=== PATIENT | male | born 1940 | race Caucasian/White ===

== ENCOUNTER → 2017-06-03 | Day surgery (SDC) | payer OTHER ==
[~2017-06-03] VITALS: Ht 182.9 cm; Wt 105.1 kg
[~2017-06-03] MED LIST: *morphine SULFATE 8 MG/ML PERIprocedure ONLY ONE; ACETAMINOPHEN 1000 MG/100 ML 100 ML IV ONE; ACETAMINOPHEN/HYDROcodone 325 MG/7.5 MG TAB PO PRN; BUPIVACAINE/EPINEPHRINE 0.25% PF 30 ML VIAL ONE; CHLORHEXIDINE GLUCONATE 2 % 1 PACK (2 CLOTHS) TOPICAL PRN; CHLORHEXIDINE GLUCONATE 4% SOLN 120 ML BTL TOPICAL SCH; DO NOT ADM ANY ANTICOAGULANT DRUGS PRN; INSULIN HUMAN REGULAR 1,000 UNITS/10 ML VIAL SQ PRN; LACTATED RINGER'S 1000 ML IV PRN; LATA0.002 EACH EYE; LISI-515 PO; METOPROLOL TARTRATE 25 MG TAB PO PRN; POVIDONE IODINE 5% (ANTISEPSIS KIT) 4 APPLICATIONS EACH NARE PRN; SODIUM CHLORID 0.9% 500 ML IV PRN; TIMO0.257 EACH EYE; WARF-60 PO; WARFARIN SOD 3 MG TAB PO ONE; ceFAZolin 1,000 MG/NS 100 ML IV SCH; ceFAZolin INJ 1,000 MG VIAL ONE
[2017-06-03 11:32] LABS: PROTHROMBIN TIME - PATIENT 11.5 SEC (9.8-11.6)
[2017-06-03 13:48] LABS: AUTOMATED NEUTROPHIL # 5.4 TH/MM3 (1.8-7.7); BASOPHIL # 0.1 TH/MM3 (0-0.2); BASOPHIL % 0.8 % (0.0-2.0); EOSINOPHIL # 0.1 TH/MM3 (0-0.4); EOSINOPHIL % 0.9 % (0.0-4.0); HEMATOCRIT 43.6 % (39.0-51.0); HEMO FLAGS DIFF FINAL; LYMPH % 15.2 % (9.0-44.0); LYMPHOCYTE # 1.1 TH/MM3 (1.0-4.8); MEAN CELL VOLUME 94.8 FL (80.0-100.0); MEAN CORPUSCULAR HEMOGLOBIN 31.9 PG (27.0-34.0); MEAN CORPUSCULAR HGB CONC 33.6 % (32.0-36.0); NEUT % 76.1 % (16.0-70.0); PLATELET COUNT 116 TH/MM3 (150-450); RED CELL DISTRIBUTION WIDTH 13.3 % (11.6-17.2)
[2017-06-03 17:50] VITALS: BP 154/77; PULSE 69; RESP 18; TEMP 97.7; O2SAT 98
--- NOTE | 2017-06-03 18:12 | RADRPT ---
EXAM DATE/TIME: 06/03/2017 15:33 [facility] COMPARISON: No previous studies available for comparison. INDICATIONS : Lower back pain. MEDICAL HISTORY : None. SURGICAL HISTORY : None. ENCOUNTER: Initial ACUITY: 1 day PAIN SCORE: Non-responsive. LOCATION: Bilateral lower back. FINDINGS: Limited views of the lower lumbar spine in lateral projection from the OR have been obtained. On the image labeled #1, surgical instruments are directed between the L3 and L4 levels. On the image labele d #2, surgical instruments are seen over the L4-5 level. CONCLUSION: Lumbar localization as described above. Franko Ledesma MD on June 03, 2017 at 18:09 Board Certified Radiologist. This report was verified electronically.
--- NOTE | 2017-06-03 19:03 | EKG ---
Date Performed: 06/03/2017 Time Performed: 10:28:09 PTAGE: 77 years EKG: Sinus rhythm POSSIBLE RIGHT VENTRICULAR CONDUCTION DELAY MODERATE VOLTAGE CRITERIA FOR LVH, CONSIDER NORMAL VARIA NT BORDERLINE ECG NO PREVIOUS TRACING DOCTOR: Tristen Pena Interpretating Date/Time 06/03/2017 19:03:02
--- NOTE | 2017-06-04 08:33 | MP ---
cc: MINNA ARRINGTON M.D., MERCEDES, MD DATE OF SURGERY 06/03/2017 PREOPERATIVE DIAGNOSIS 1. L3-4, L4-5 moderate to moderately severe spinal stenosis. 2. Left greater than right lumbar radiculitis. 3. Lumbar spine degenerative disk disease, osteoarthritis. POSTOPERATIVE DIAGNOSIS 1. L3-4, L4-5 moderately severe spinal stenosis. 2. Left greater than right lumbar radiculitis. 3. Lumbar spine degenerative disk disease, osteoarthritis. PROCEDURE L3-4, L4-5 bilateral hemilaminectomy with decompression nerve root, bilateral foraminotomy, partial facetectomy. SURGEON Jesica Arrington MD ACCOUNT RECEIVABLE CLERK Dhara Mayer PA-C SPECIMEN None ESTIMATED BLOOD LOSS 50 cc COMPLICATIONS None ANESTHESIA General DRAINS None CONDITION Stable PLAN OF ACTIVITY Per orders. PROCEDURE My assistant child care teacher Dhara Mayer PA-C was present for the entire surgical case. She was medically necessary for the entire case because of the complexity of the case and to facilitate the performance of the procedure. The PASTRY FINISHER at the back table was not a skill set for this case to manipulate the instruments e.g. multiple different types of soft tissue retractors and nerve root retractors. The patient was brought into the operating room, had satisfactory general anesthesia by the Department of Anesthesia. The patient was carefully transferred onto the [facility] spinal frame. All pressure points were well-padded. The lumbosacral spine was prepped and draped in the usual sterile manner. A localizing x-ray was used to confirm the L3-4 and L4-5 interspaces. 25 cc of 0.25% Marcaine with epinephrine was used to anesthetize the operative site to provide postoperative analgesia in addition to postoperative hemostasis. A small incision was made over the lower lumbar spine area. Dissection carried down through the subcutaneous tissue. All bleeders were individually coagulated. Paraspinal musculature gently removed from the posterior elements. A localizing x-ray was used to confirm the L3-4 and L4-5 interspaces. Dissection was initially carried out at L4-5. A bilateral hemilaminectomy with decompression of the nerve roots was performed. The patient was found to have more spinal stenosis then the preoperative imaging studies showed. The patient was found to have moderately severe spinal stenosis with foraminal stenosis. The bilateral decompressive hemilaminectomy performed and bilateral foraminotomy with partial facetectomy. The patient was found to have a very satisfactory decompression of the neurological elements. Dissection was carried in a more cephalad manner at the L3-4 interspace. Bilateral decompressive hemilaminectomy was performed at L3-4 with decompression of the nerve roots. Bilateral foraminotomy and partial facetectomy was also performed. Again, the patient was found to have moderately severe spinal stenosis at this segment also. The wound was irrigated with copious amounts of sterile saline antibiotic solution. Because the patient is going to be anticoagulated postoperatively, Duragen was then placed on top of the dura to help prevent postoperative adhesions and also help prevent any potential postoperative hemorrhaging. Also, Surgicel was used at the operative site to help prevent any potential postoperative bleeding. At the time of closure, there was no evidence of any bleeding at all. The wound was closed in multiple layers. The fascia was closed with #2 Tycron suture x2, subcutaneous tissue in layers with 0-Vicryl and 2-0 Vicryl. Skin was approximated with interrupted 2-0 nylon. Sterile dressings were applied. The patient tolerated the procedure well and arrived in the recovery room in stable and satisfactory condition. MD KORTNEY Hargrove/[place] /4:24 PM /8:24 AM
== END | disposition home or self-care (01) ==
LOC: HSDC 09:43
PROVIDERS: ATTEND Orthopaedic Surgery Orthopaedic Surgery of the Spine
DX: M48.07 Spinal stenosis, lumbosacral region (principal); M54.16 Radiculopathy, lumbar region; M51.36 Other intervertebral disc degeneration, lumbar region; I10 Essential (primary) hypertension; J45.909 Unspecified asthma, uncomplicated; M85.80 Other specified disorders of bone density and structure, unspecified site; I82.5Z1 Chronic embolism and thrombosis of unspecified deep veins of right distal lower extremity; Z01.810 Encounter for preprocedural cardiovascular examination; Z01.818 Encounter for other preprocedural examination
CPT/HCPCS: 00630; 63030; 63035; 72020; 76000; 85025; 85610; 93005; J0131; J0690; J2270; J7120

== ENCOUNTER → 2017-09-02 | Outpatient (CLI) | payer OTHER ==
[~2017-09-02] MED LIST changes: -*morphine SULFATE 8 MG/ML PERIprocedure ONLY ONE; -ACETAMINOPHEN 1000 MG/100 ML 100 ML IV ONE; -ACETAMINOPHEN/HYDROcodone 325 MG/7.5 MG TAB PO PRN; -BUPIVACAINE/EPINEPHRINE 0.25% PF 30 ML VIAL ONE; -CHLORHEXIDINE GLUCONATE 2 % 1 PACK (2 CLOTHS) TOPICAL PRN; -CHLORHEXIDINE GLUCONATE 4% SOLN 120 ML BTL TOPICAL SCH; +COMMODE 3-IN-11 MIS; +CPMMACHINE; -DO NOT ADM ANY ANTICOAGULANT DRUGS PRN; -INSULIN HUMAN REGULAR 1,000 UNITS/10 ML VIAL SQ PRN; -LACTATED RINGER'S 1000 ML IV PRN; -METOPROLOL TARTRATE 25 MG TAB PO PRN; -POVIDONE IODINE 5% (ANTISEPSIS KIT) 4 APPLICATIONS EACH NARE PRN; -SODIUM CHLORID 0.9% 500 ML IV PRN; +VENTAER INH; +VITA100021 SL; +WALKER WHEELS/F1 MIS; -WARFARIN SOD 3 MG TAB PO ONE; -ceFAZolin 1,000 MG/NS 100 ML IV SCH; -ceFAZolin INJ 1,000 MG VIAL ONE
== END ==
LOC: CPRE 11:47
PROVIDERS: ATTEND Orthopaedic Surgery
DX: M17.11 Unilateral primary osteoarthritis, right knee (principal)

== ENCOUNTER 2017-09-18 06:44 | Inpatient (IN) | payer OTHER, MEDICARE ==
[~2017-09-18] VITALS: Ht 182.9 cm; Wt 109.3 kg
[~2017-09-18 06:44] MED LIST changes: -COMMODE 3-IN-11 MIS; -CPMMACHINE; -WALKER WHEELS/F1 MIS
[2017-09-18] MEDS ORDERED: ROPIVACAINE PERI-ARTICULAR INJECTION. P-ARTICULR SCH ×5 (07:30)
[2017-09-18] MEDS ORDERED: METOPROLOL TARTRATE 25 MG TAB PO PRN (07:30)
[2017-09-18] MEDS ORDERED: POVIDONE IODINE 7.5% SCRUB 118 ML BOTTLE TOPICAL SCH (07:30)
[2017-09-18] MEDS ORDERED: SODIUM CHLORID 0.9% 500 ML IV PRN (07:30)
[2017-09-18] MEDS ORDERED: CHLORHEXIDINE GLUCONATE 4% SOLN 120 ML BTL TOPICAL SCH (07:30)
[2017-09-18] MEDS ORDERED: ceFAZolin 2 GM PREMIX 50 ML IV SCH (07:30)
[2017-09-18] MEDS ORDERED: CHLORHEXIDINE GLUCONATE 2 % 1 PACK (2 CLOTHS) TOPICAL PRN (07:30)
[2017-09-18] MEDS ORDERED: POVIDONE IODINE 5% (ANTISEPSIS KIT) 4 APPLICATIONS EACH NARE PRN (07:30)
[2017-09-18] MEDS ORDERED: LACTATED RINGER'S 1000 ML IV PRN (07:30)
[2017-09-18] MEDS ORDERED: SODIUM CHLORIDE 0.9% IV SCH ×2 (07:30→13:00)
[2017-09-18] MEDS ORDERED: TRANEXAMIC ACID IV SCH ×2 (07:30→13:00)
[2017-09-18] MEDS ORDERED: VANCOMYCIN 1000 MG/NS 250 ML (for <70 kg) IV SCH ×2 (07:30)
[2017-09-18] MEDS ORDERED: DEXAMETHASONE SOD PHOS 20 MG/5 ML VIAL IV SCH (07:30)
[2017-09-18 07:40] LABS: INTERNATIONAL NORMALIZED RATIO 1.1 RATIO; PROTHROMBIN TIME - PATIENT 10.9 SEC (9.8-11.6)
[2017-09-18 08:23] VITALS: PULSE 59
[2017-09-18] MEDS ORDERED: GENTAMICIN SULFATE 80 MG/2 ML VIAL ONE ×2 (08:29)
[2017-09-18] MEDS ORDERED: BUPIVACAINE LIPOSOME PF 1.3% 20 ML VIAL ONE ×2 (08:46→08:47)
[2017-09-18] MEDS ORDERED: LIDOCAINE HCL 1% PF 5 ML AMPULE ONE (08:47)
[2017-09-18] MEDS ORDERED: ALBUTEROL SULFATE 90 MCG/ACT HFA 8 GM INHALER INH PRN (11:45)
--- NOTE | 2017-09-18 11:55 | PD.OP ---
cc: Heri Cabrera MD Operative Report Date of Surgery: Sep 18, 2017 Preoperative Diagnosis: Right knee severe osteoarthritis Postoperative Diagnosis: Same Procedure: Right total knee arthroplasty Anesthesia: Adductor canal block and general Surgeon: Heri Cabrera Coremaker Bench(s): NIKO Chacon The surgical procedure was assisted by my Advanced Registered Nurse Practitioner. My CABLE ARMORER OPERATOR presence was necessary throughout this case for the manipulation and positioning of the surgical extremity. My CABLE ARMORER OPERATOR was assisting me throughout the duration of this procedure. The skill set of an Advance Registered Nurse Practitioner was medically necessary to complete this procedure. During the surgical case, the neurosurgical nurse was working at the back table and the Advance Registered Nurse Practitioner was directly assisting me. Operation and Findings: IMPLANTS: DePuy Attune: Patella: size 32. Femur, posterior stabilized size 8. Tibia, rotating platform size 7. Tibial insert, rotating platform, posterior stabilized size 8 mm thickness. ESTIMATED BLOOD LOSS: 200 cc TOURNIQUET TIME: 43 minutes at 250 mmHg pressure. JUSTIFICATION FOR PROCEDURE: The patient has end-stage osteoarthritis to the knee. There is an attached conservative measures pathway form in the chart that describes the nonoperative measures that were undertaken prior to consideration of surgical management. The patient understood the risks and benefits of surgical management. See my office notes for further details PROCEDURE: The patient was brought back to the operative theatre. Adequate anesthesia was obtained. The patient received intravenous vancomycin and Ancef. The lower extremity was prepped and draped in the usual sterile fashion.The leg was exsanguinated, the tourniquet was raised. A standard anterior incision was performed followed by medial parapatellar arthrotomy was performed. End-stage arthritis was identified. Osteotomy of the patella was performed. We drilled holes for the patella. We trialed the patella component. We placed an intramedullary guide into the distal femur. We ultimately resected 13 mm off of the distal femur in 5 degrees of valgus. The remnants of the ACL and PCL were resected. Osteotomy of the proximal tibia was performed, resecting 7 mm off of the medial side. This was done with 3 degrees of posterior slope using an extramedullary guide. The distal end of the guide was placed in the mid aspect of the ankle. The femur was sized, and four chamfer cuts were completed in 3 of external rotation. We then cut the central box in the distal femur to replace the PCL. We resected the remnants of the menisci and removed osteophytes off of the femur and tibia. We then trialed the knee. We punched the tibia for the keel, and then used standard technique to cement in components. Excess cement was removed. We trialed the knee again and the final polyethylene thickness was chosen to provide extension to 0 degrees, and flexion of 140 degrees to gravity. The ligaments were appropriately balanced. Lateral release was necessary to obtain excellent patellofemoral tracking. The tourniquet was released and adequate hemostasis was obtained. An intra- articular injection of a ropivacaine cocktail was injected. The posterior knee was inspected for excess cement, which was removed. The final polyethylene was put into position after thorough irrigation. We then closed deep fascia with a #2 Stratafix followed by skin with 2-0 Vicryl followed by erick. Postop plan is to weight-bear as tolerated. DVT prophylaxis will be performed with SCDs, CHATO parker, early mobilization, and Lovenox for 3 days with resumption of outpatient dose of Coumadin tonight.. Heri Cabrera MD Sep 18, 2017 11:55
[2017-09-18] MEDS ORDERED: PROPOFOL 200 MG/20 ML AMP IV ONE (12:00)
[2017-09-18] MEDS ORDERED: ROCURONIUM INJ 50 MG/5 ML SYRINGE IV PUSH ONE (12:00)
[2017-09-18] MEDS ORDERED: hydrALAZINE HCL 20 MG/ML VIAL IV ONE (12:00)
[2017-09-18] MEDS ORDERED: ONDANSETRON HCL 4 MG/2 ML VIAL IVP PRN (12:00)
[2017-09-18] MEDS ORDERED: diphenhydrAMINE HCL 50 MG/ML VIAL IV PUSH PRN (12:00)
[2017-09-18] MEDS ORDERED: BISACODYL 10 MG SUPP RECTAL PRN (12:00)
[2017-09-18] MEDS ORDERED: NALOXONE HCL 0.4 MG/ML AMP IV PUSH PRN (12:00)
[2017-09-18] MEDS ORDERED: MORPHINE SULFATE 4 MG/ML INJ IV PUSH PRN (12:00)
[2017-09-18] MEDS ORDERED: Post-op Orders (for Pharmacy) XX ONE (12:00)
[2017-09-18] MEDS ORDERED: ONDANSETRON HCL 4 MG/2 ML VIAL IV ONE (12:00)
[2017-09-18] MEDS ORDERED: LIDOCAINE HCL 1% PF 5 ML SYRINGE OTHER ONE (12:00)
[2017-09-18] MEDS ORDERED: DO NOT ADM ANY ANTICOAGULANT DRUGS PRN (12:08)
--- NOTE | 2017-09-18 12:09 | HHI.DCPOC ---
Discharge Care Plan Diagnosis: (1) Primary localized osteoarthrosis, lower leg (2) Status post total knee replacement, right Your Health Problems Are: Difficulty with ADL Goals to Promote Your Health * To prevent worsening of your condition and complications * To maintain your health at the optimal level Directions to Meet Your Goals Take your medications as prescribed Follow your dietary instruction Follow activity as directed Keep your appointments as scheduled Take your immunizations and boosters as scheduled If your symptoms worsen call your PCP, if no PCP go to Urgent Care Center or Emergency Room Smoking is Dangerous to Your Health. Avoid second hand smoke Call the 24-hour hour crisis hotline for domestic abuse at Harley Castorena Sep 18, 2017 12:09
--- NOTE | 2017-09-18 12:10 | HHI.FF ---
Face to Face Verification Diagnosis: (1) Primary localized osteoarthrosis, lower leg (2) Status post total knee replacement, right Physical Therapy Gait training, Transfer training, bed to chair Knee: Total knee Right LE Weight Bearing: WB as tolerated Right LE Range of Motion: Active ROM Nursing Dressing Changes: Do not change dressing Additional Instructions First dressing change in the office I have seen patient Stanley Mackay on 09/18/17. My clinical findings support the need for the requested home health care services because: Limited ability to care for self High risk of falls I certify that my clinical findings support that this patient is homebound because: Post-op weakness Unsteady gait/balance Harley Castorena Sep 18, 2017 12:10
[2017-09-18] MEDS ORDERED: WALKER WHEELS/F1 MIS (12:11)
[2017-09-18] MEDS ORDERED: CPMMACHINE (12:11)
[2017-09-18] MEDS ORDERED: COMMODE 3-IN-11 MIS (12:11)
[2017-09-18] MEDS ORDERED: *MEPERIDINE 25 MG INJ VIAL PERIprocedural Use ONLY ONE (12:23)
[2017-09-18] MEDS ORDERED: MIDAZOLAM HCL 2 MG/2 ML VIAL ONE (12:24)
[2017-09-18] MEDS ORDERED: *morphine SULFATE 4 MG/ML PERIprocedure ONLY ONE (12:36)
[2017-09-18] MEDS: SODIUM CHLOR 0.9% 1000 ML INJ 1,000 ML IV SCH ×3 (13:00→22:09)
[2017-09-18] MEDS ORDERED: *morphine SULFATE 10 MG/ML PERIprocedure ONLY ONE (13:06)
--- NOTE | 2017-09-18 13:35 | RADRPT ---
EXAM DATE/TIME: 09/18/2017 12:58 [facility] COMPARISON: No previous studies available for comparison. INDICATIONS : Post op right knee surgery. MEDICAL HISTORY : Carcinoma, prostatic. Hypertension SURGICAL HISTORY : None. ENCOUNTER: Initial ACUITY: 1 day PAIN SCORE: Non-responsive. LOCATION: Right knee. FINDINGS: AP and lateral views of the knee following arthroplasty reveals a prosthesis in anatomic alignment. F racture is not appreciated. Surgical drain is evident CONCLUSION: Status post total knee arthroplasty. Gustavo Bishop MD FACR on September 18, 2017 at 13:35 Board Certified Radiologist. This report was verified electronically.
[2017-09-18] MEDS: WARFARIN SOD 6 MG TAB PO SCH (17:31)
--- NOTE | 2017-09-18 17:46 | PD.CONS ---
HPI Service [facility] Hospitalists Consult Requested By Dr. Cabrera Reason for Consult Medical management. Primary Care Physician Fouzia Alvarado Diagnoses: History of Present Illness This is a 77-year-old male with past medical history significant for chronic back pain and radiculopathy, glaucoma, hypertension and history of DVT who presents to [facility] for elective right total knee arthroplasty. The patient underwent right total knee arthroplasty today, states pain is controlled and the right knee hurts more when he moves the joint. The patient otherwise denies any nausea, vomiting, abdominal pain, dysuria, diarrhea. Review of Systems As per HPI, other systems reviewed by me and negative. Past Family Social History Allergies: Coded Allergies: No Known Allergies (Unverified , 09/03/17) Past Medical History 1. Right lower extremity DVT. 2. Chronic back pain with radicular signs. 3. Glaucoma the right eye. 4. Hypertension Past Surgical History 1. Lumbar spine surgery in April 2017. 2. Status post right cataract surgery. Reported Medications Reported Meds & Active Scripts Active Reported Ventolin Hfa 18 GM Inh (Albuterol Sulfate) 90 Mcg/Act Aer 1 Puff INH Q4H PRN Vitamin B-12 (Cyanocobalamin) 1,000 Mcg Subl 1,000 Mcg SL DAILY Latanoprost Opth Drops (Latanoprost) 0.005% Drops 1 Drop EACH EYE HS Refrigerate until opened. Timolol Opth Drops 0.25 % Soln 0.25 Drop EACH EYE DAILY Warfarin 6 Mg Tab 6 Mg PO DAILY Lisinopril 20 Mg Tab 20 Mg PO DAILY Active Ordered Medications Current Medications Medications (Trade) Dose Ordered Sig/Basil Route Start Time Stop Time Status Last Admin Lactated Ringer's 1,000 ml @ 30 mls/hr Q24H PRN IV 09/18/17 07:30 09/21/17 07:29 09/18/17 07:30 Sodium Chloride 500 ml @ 30 mls/hr [id number] PRN IV 09/18/17 07:30 09/21/17 07:29 (Lopressor) 25 mg CARTON STAMPER PRN PO 09/18/17 07:30 09/21/17 07:29 (Betadine 5% Antisepsis Kit) 1 applic CARTON STAMPER PRN EACH NARE 09/18/17 07:30 09/21/17 07:29 09/18/17 07:30 (Chlorhexidine 2% Cloth) 3 pack CARTON STAMPER PRN TOPICAL 09/18/17 07:30 09/21/17 07:29 09/18/17 06:15 (Betadine 7.5% Scrub) 1 applic ONCE TOPICAL 09/18/17 07:30 09/21/17 07:29 09/18/17 07:15 (Hibiclens 4% Top Soln) 1 applic ONCE TOPICAL 09/18/17 07:30 09/21/17 07:29 Cefazolin Sodium/ Dextrose 50 ml @ 100 mls/hr CARTON STAMPER IV 09/18/17 07:30 09/21/17 07:29 09/18/17 09:44 Vancomycin HCl 1000 mg/Sodium Chloride 250 ml @ 250 mls/hr CARTON STAMPER IV 09/18/17 07:30 09/21/17 07:29 09/18/17 09:33 Tranexamic Acid 1033 mg/Sodium Chloride 110.33 ml @ 200 mls/ hr ONCE IV 09/18/17 07:30 09/19/17 07:29 09/18/17 10:19 Ropivacaine 24.63 ml/Ketorolac Tromethamine 30 mg/Epinephrine HCl 0.5 mg/ Clonidine 80 mcg/ Sodium Chloride 100 ml @ 200 mls/hr ONCE P-ARTICULR 09/18/17 07:30 09/19/17 07:29 09/18/17 10:43 (Decadron Inj) 10 mg CARTON STAMPER IV 09/18/17 07:30 09/18/17 08:10 (Proair Hfa Inh) 1 puff Q4H PRN INH 09/18/17 11:45 (Xalatan 0.005% Opth Soln) 1 drop HS EACH EYE 09/18/17 21:00 09/18/17 20:23 (Prinivil) 20 mg DAILY PO 09/19/17 09:00 (Timoptic 0.25% Opth Soln) 1 drop DAILY EACH EYE 09/19/17 09:00 Sodium Chloride 1,000 ml @ 100 mls/hr Q10H IV 09/18/17 13:00 09/18/17 22:09 Cefazolin Sodium 1000 mg/Sodium Chloride 100 ml @ 200 mls/hr Q6H IV 09/18/17 16:00 09/19/17 04:29 09/18/17 20:20 (Decadron Inj) 10 mg ONCE ONCE IV 09/19/17 07:45 09/19/17 07:46 (Lovenox Inj) 40 mg Q24H SQ 09/19/17 11:00 09/21/17 11:01 (Nash 5-325 Mg) 1 tab Q4H PRN PO 09/18/17 12:00 (Nash 5-325 Mg) 2 tab Q4H PRN PO 09/18/17 12:00 09/18/17 18:16 (Theragran M Tab) 1 tab BID PO 09/19/17 21:00 11/18/17 20:59 (Zofran Inj) 4 mg Q6H PRN IVP 09/18/17 12:00 (Colace) 100 mg BID PO 09/19/17 21:00 (Mag-Al Plus Susp Liq) 30 ml Q6H PRN PO 09/18/17 12:00 09/18/17 23:21 (Ambien) 5 mg HS PRN PO 09/18/17 21:00 (Dulcolax Supp) 10 mg DAILY PRN RECTAL 09/18/17 12:00 (Milk Of Magnesia Liq) 30 ml DAILY PRN PO 09/18/17 12:00 (Narcan Inj) 0.4 mg UNSCH PRN IV PUSH 09/18/17 12:00 (Benadryl Inj) 25 mg Q6H PRN IV PUSH 09/18/17 12:00 (Morphine Inj) 2 mg Q3H PRN IV PUSH 09/18/17 12:00 09/18/17 15:13 (Coumadin) 6 mg DAILY@1600 PO 09/18/17 17:00 09/18/17 17:31 Miscellaneous Information ALL NURSING DEPARTME... UNSCH PRN .XX 09/18/17 12:08 09/19/17 12:07 Family History The patient denies any history of diabetes, cancer or heart disease in his family. Social History The patient states that he drinks alcohol daily, about 2 drinks daily. The patient denies smoking, he is a former smoker and quit in 1959. The patient denies any illicit drug use. The patient is and has 3 grown children who all live in [place]. Physical Exam Vital Signs Vital Signs Date Time Temp Pulse Resp B/P (MAP) Pulse Ox O2 Delivery O2 Flow Rate FiO2 09/18/17 16:30 97.6 80 16 140/65 (90) 95 Nasal Cannula 2 09/18/17 16:00 79 16 148/69 (95) 94 Nasal Cannula 2 09/18/17 15:18 16 09/18/17 15:00 77 15 143/70 (94) 94 Nasal Cannula 2 09/18/17 14:00 75 15 137/70 (92) 94 Nasal Cannula 2 09/18/17 13:30 97.7 76 15 143/65 (91) 98 Nasal Cannula 3 09/18/17 13:15 77 15 139/66 (90) 97 Nasal Cannula 3 09/18/17 13:11 15 09/18/17 13:11 15 09/18/17 13:00 78 15 138/64 (88) 95 Nasal Cannula 3 09/18/17 12:45 83 15 143/64 (90) 95 Nasal Cannula 3 09/18/17 12:41 15 09/18/17 12:30 87 15 152/67 (95) 98 Nasal Cannula 4 09/18/17 12:15 84 14 146/63 (90) 97 Nasal Cannula 4 09/18/17 12:10 97.3 86 14 143/58 (86) 93 Nasal Cannula 4 09/18/17 08:23 98 Nasal Cannula 2 09/18/17 08:23 59 Physical Exam GENERAL: This is a well-nourished, well-developed patient, in no apparent distress. SKIN: No rashes, ecchymoses or lesions. Cool and dry. HEAD: Atraumatic. Normocephalic. No temporal or scalp tenderness. EYES: Pupils equal round and reactive. Extraocular motions intact. No scleral icterus. No injection or drainage. ENT: Nose without bleeding, purulent drainage or septal hematoma. Throat without erythema, tonsillar hypertrophy or exudate. Uvula midline. Airway patent. NECK: Trachea midline. No JVD or lymphadenopathy. Supple, nontender, no meningeal signs. CARDIOVASCULAR: Regular rate and rhythm without murmurs, gallops, or rubs. RESPIRATORY: Clear to auscultation. Breath sounds equal bilaterally. No wheezes , rales, or rhonchi. GASTROINTESTINAL: Abdomen soft, non-tender, nondistended. No hepato-splenomegaly , or palpable masses. No guarding. MUSCULOSKELETAL: Extremities without clubbing, cyanosis, or edema. No joint tenderness, effusion, or edema noted. No calf tenderness. Negative Homans sign bilaterally. Right knee has postsurgical dressing which is C/D/I. NEUROLOGICAL: Awake and alert. Cranial nerves II through XII intact. Motor and sensory grossly within normal limits. Five out of 5 muscle strength in all muscle groups. Normal speech. Laboratory Laboratory Tests Test 09/18/17 07:15 Prothrombin Time 10.9 Prothromb Time International Ratio 1.1 Imaging Last Impressions Knee X-Ray 09/18/17 1146 Signed Impressions: Service Date/Time: Monday, September 18, 2017 12:58 - CONCLUSION: Status post total knee arthroplasty. Gustavo Bishop MD Assessment and Plan Problem List: (1) Status post total knee replacement, right ICD Code: Z96.651 - Presence of right artificial knee joint Plan: Status post right total knee arthroplasty. Management as per orthopedic surgery. Pain control as per orthopedic surgery. Patient currently on Nash and morphine IV. (2) Primary localized osteoarthrosis, lower leg ICD Code: M17.10 - Unilateral primary osteoarthritis, unspecified knee Plan: As above. (3) H/O deep venous thrombosis ICD Code: Z86.718 - Personal history of other venous thrombosis and embolism Status: Chronic Plan: Coumadin on hold. Resume as per orthopedic surgery. (4) Glaucoma ICD Code: H40.9 - Unspecified glaucoma Plan: Continue Timolol and latanoprost ophthalmic drops. Assessment and Plan DVT prophylaxis: Lovenox subcutaneously as per orthopedic surgery. Code Status Full code Discussed Condition With Patient. Problem Qualifiers (1) Primary localized osteoarthrosis, lower leg: Qualified Codes: M17.11 - Unilateral primary osteoarthritis, right knee (2) Glaucoma: Tim Spears MD Sep 18, 2017 17:46
[2017-09-18] MEDS: ACETAMINOPHEN/HYDROcodone 325 MG/5 MG TAB PO PRN (18:16)
[2017-09-18 20:02] VITALS: BP 152/71; PULSE 75; RESP 18; TEMP 97.1; O2SAT 93
[2017-09-18] MEDS: LATANOPROST 0.005% OPHT SOLN 2.5 ML BTL EACH EYE SCH (20:23)
[2017-09-18] MEDS ORDERED: ZOLPIDEM TARTRATE 5 MG TAB PO PRN (21:00)
[2017-09-18] MEDS: ALUMINUM/MAGNESIUM/SIMETH 30 ML CUP PO PRN (23:21)
[2017-09-18 23:32] VITALS: BP 154/71; PULSE 74; RESP 18; TEMP 97.3; O2SAT 95
[2017-09-19] VITALS (8 sets, daily range): BP systolic 147–175; BP diastolic 69–86; PULSE 67–84; RESP 18; TEMP 96.8–98.1; O2SAT 94–97
[2017-09-19 04:20] LABS: HEMATOCRIT 41.3 % (39.0-51.0); HEMOGLOBIN 13.9 GM/DL (13.0-17.0); MEAN CELL VOLUME 91.2 FL (80.0-100.0); MEAN CORPUSCULAR HEMOGLOBIN 30.8 PG (27.0-34.0); MEAN CORPUSCULAR HGB CONC 33.8 % (32.0-36.0); MEAN PLATELET VOLUME 8.7 FL (7.0-11.0); PLATELET COUNT 167 TH/MM3 (150-450); RED BLOOD COUNT 4.52 MIL/MM3 (4.50-5.90); RED CELL DISTRIBUTION WIDTH 14.7 % (11.6-17.2); WHITE BLOOD COUNT 14.1 TH/MM3 (4.0-11.0)
[2017-09-19 04:28] LABS: INTERNATIONAL NORMALIZED RATIO 1.1 RATIO; PROTHROMBIN TIME - PATIENT 11.1 SEC (9.8-11.6)
[2017-09-19] MEDS: ACETAMINOPHEN/HYDROcodone 325 MG/5 MG TAB PO PRN ×5 (04:43→21:01)
[2017-09-19] MEDS: SODIUM CHLOR 0.9% 1000 ML INJ 1,000 ML IV SCH (04:44)
[2017-09-19] MEDS ORDERED: DEXAMETHASONE SOD PHOS 20 MG/5 ML VIAL IV ONE (07:45)
[2017-09-19] MEDS: TIMOLOL MALEATE 0.25% OPHT SOLN 5 ML BTL EACH EYE SCH (08:43)
[2017-09-19] MEDS ORDERED: WARFARIN SOD 6 MG TAB PO SCH (09:00)
[2017-09-19] MEDS ORDERED: LISINOPRIL 20 MG TAB PO SCH (09:00)
[2017-09-19] MEDS: ENOXAPARIN SODIUM 40 MG/0.4 ML SYRINGE SQ SCH (12:16)
[2017-09-19 12:17] LABS: ALBUMIN 3.4 GM/DL (3.4-5.0); ALT (GPT) 18 U/L (12-78); AST (GOT) 19 U/L (15-37); BICARBONATE 24.4 MEQ/L (21.0-32.0); BLOOD UREA NITROGEN 13 MG/DL (7-18); CALCIUM 8.5 MG/DL (8.5-10.1); CHLORIDE 108 MEQ/L (98-107); CREATININE 1.16 MG/DL (0.60-1.30); GLOMERULAR FILTRATION RATE 61 ML/MIN (>89); GLUCOSE,RANDOM 95 MG/DL (74-106); SODIUM (NA) 140 MEQ/L (136-145)
[2017-09-19 12:19] LABS: ALKALINE PHOSPHATASE 65 U/L (45-117); TOTAL BILIRUBIN ADULT 0.9 MG/DL (0.2-1.0); TOTAL PROTEIN 6.8 GM/DL (6.4-8.2)
--- NOTE | 2017-09-19 12:19 | PD.ORT.PN ---
Subjective Post Op Day #: 1 Subjective Remarks The patient is OOB in chair with minimal pain to the right knee. Patient states he has struggled some with ambulation and has decided to go to SNF rather than to go home with home health. Objective Vitals Vital Signs Date Time Temp Pulse Resp B/P (MAP) Pulse Ox O2 Delivery O2 Flow Rate FiO2 09/19/17 10:22 95 21 09/19/17 08:00 96.9 67 18 161/83 (109) 97 09/19/17 04:25 97.2 81 18 147/69 (95) 94 09/18/17 23:32 97.3 74 18 154/71 (98) 95 09/18/17 20:21 21 09/18/17 20:02 97.1 75 18 152/71 (98) 93 09/18/17 16:30 97.6 80 16 140/65 (90) 95 Nasal Cannula 2 09/18/17 16:00 79 16 148/69 (95) 94 Nasal Cannula 2 09/18/17 15:18 16 09/18/17 15:00 77 15 143/70 (94) 94 Nasal Cannula 2 09/18/17 14:00 75 15 137/70 (92) 94 Nasal Cannula 2 09/18/17 13:30 97.7 76 15 143/65 (91) 98 Nasal Cannula 3 09/18/17 13:15 77 15 139/66 (90) 97 Nasal Cannula 3 09/18/17 13:11 15 09/18/17 13:11 15 09/18/17 13:00 78 15 138/64 (88) 95 Nasal Cannula 3 09/18/17 12:45 83 15 143/64 (90) 95 Nasal Cannula 3 09/18/17 12:41 15 09/18/17 12:30 87 15 152/67 (95) 98 Nasal Cannula 4 I/O 09/18/17 09/18/17 09/18/17 09/19/17 09/19/17 09/19/17 07:00 15:00 23:00 07:00 15:00 23:00 Intake Total 1210.33 ml 1560 ml 1680 ml Output Total 200 ml 250 ml 425 ml Balance 1010.33 ml 1310 ml 1255 ml Intake Oral 360 ml 480 ml IV Total 1210.33 ml 1200 ml 1200 ml Output Urine Total 250 ml 425 ml Estimated Blood Loss 200 ml # Voids 2 # Bowel Movements 0 0 Result Diagram: 09/19/17 0410 Other Results Laboratory Tests Test 09/19/17 04:10 Prothromb Time International Ratio 1.1 RATIO Prothrombin Time 11.1 SEC (9.8-11.6) Procedures Right TKA Objective Remarks Dressing is C/D/I. EHL/TA/G intact. 2+ pedal pulse. Calf is soft and nontender. + SILT. Assessment & Plan Ortho Post Op Day #: 1 Problem List: Assessment and Plan POD #1: Right TKA 1. Resume Coumadin. Continue with 3 days of Lovenox until therapeutic on Coumadin. Today's INR: 1.1 2. WBAT RLE 3. Ice to the right knee PRN 4. Stable for discharge to SNF on Saturday per ortho 5. F/U in the office with Dr. Cabrera or NIKO Guidry as previously scheduled. Harley Castorena Sep 19, 2017 12:19
--- NOTE | 2017-09-19 14:08 | HHI.PR ---
Subjective Remarks BP elevated Pain in right knee -12/29. Denies cp/sob. Objective Vitals Vital Signs Date Time Temp Pulse Resp B/P (MAP) Pulse Ox O2 Delivery O2 Flow Rate FiO2 09/19/17 12:00 98.1 84 18 156/76 (102) 95 09/19/17 10:22 95 21 09/19/17 08:00 96.9 67 18 161/83 (109) 97 09/19/17 04:25 97.2 81 18 147/69 (95) 94 09/18/17 23:32 97.3 74 18 154/71 (98) 95 09/18/17 20:21 21 09/18/17 20:02 97.1 75 18 152/71 (98) 93 09/18/17 16:30 97.6 80 16 140/65 (90) 95 Nasal Cannula 2 09/18/17 16:00 79 16 148/69 (95) 94 Nasal Cannula 2 09/18/17 15:18 16 09/18/17 15:00 77 15 143/70 (94) 94 Nasal Cannula 2 I/O 09/18/17 09/18/17 09/18/17 09/19/17 09/19/17 09/19/17 06:59 14:59 22:59 06:59 14:59 22:59 Intake Total 1210.33 ml 1560 ml 1680 ml Output Total 200 ml 250 ml 425 ml Balance 1010.33 ml 1310 ml 1255 ml Intake Oral 360 ml 480 ml IV Total 1210.33 ml 1200 ml 1200 ml Output Urine Total 250 ml 425 ml Estimated Blood Loss 200 ml # Voids 2 # Bowel Movements 0 0 Result Diagram: 09/19/17 0410 09/19/17 1003 Imaging Last Impressions Knee X-Ray 09/18/17 1146 Signed Impressions: Service Date/Time: Monday, September 18, 2017 12:58 - CONCLUSION: Status post total knee arthroplasty. Gustavo Bishop MD Objective Remarks Sitting in chair NAD Clear lungs S1S2 RRR abdomen soft, non tender, non distended no edema in lower extremities Moderate swelling in the right knee. Medications and IVs Current Medications Medications (Trade) Dose Ordered Sig/Basil Route Start Time Stop Time Status Last Admin Lactated Ringer's 1,000 ml @ 30 mls/hr Q24H PRN IV 09/18/17 07:30 09/21/17 07:29 09/18/17 07:30 Sodium Chloride 500 ml @ 30 mls/hr [id number] PRN IV 09/18/17 07:30 09/21/17 07:29 (Lopressor) 25 mg [employer] PRN PO 09/18/17 07:30 09/21/17 07:29 (Betadine 5% Antisepsis Kit) 1 applic [employer] PRN EACH NARE 09/18/17 07:30 09/21/17 07:29 09/18/17 07:30 (Chlorhexidine 2% Cloth) 3 pack [employer] PRN TOPICAL 09/18/17 07:30 09/21/17 07:29 09/18/17 06:15 (Betadine 7.5% Scrub) 1 applic ONCE TOPICAL 09/18/17 07:30 09/21/17 07:29 09/18/17 07:15 (Hibiclens 4% Top Soln) 1 applic ONCE TOPICAL 09/18/17 07:30 09/21/17 07:29 Cefazolin Sodium/ Dextrose 50 ml @ 100 mls/hr [employer] IV 09/18/17 07:30 09/21/17 07:29 09/18/17 09:44 Vancomycin HCl 1000 mg/Sodium Chloride 250 ml @ 250 mls/hr [employer] IV 09/18/17 07:30 09/21/17 07:29 09/18/17 09:33 (Decadron Inj) 10 mg [employer] IV 09/18/17 07:30 09/18/17 08:10 (Proair Hfa Inh) 1 puff Q4H PRN INH 09/18/17 11:45 (Xalatan 0.005% Opth Soln) 1 drop HS EACH EYE 09/18/17 21:00 09/18/17 20:23 (Timoptic 0.25% Opth Soln) 1 drop DAILY EACH EYE 09/19/17 09:00 Sodium Chloride 1,000 ml @ 100 mls/hr Q10H IV 09/18/17 13:00 09/19/17 04:44 (Lovenox Inj) 40 mg Q24H SQ 09/19/17 11:00 09/21/17 11:01 09/19/17 12:16 ([place] 5-325 Mg) 1 tab Q4H PRN PO 09/18/17 12:00 09/19/17 12:21 ([place] 5-325 Mg) 2 tab Q4H PRN PO 09/18/17 12:00 09/18/17 18:16 (Theragran M Tab) 1 tab BID PO 09/19/17 21:00 11/18/17 20:59 (Zofran Inj) 4 mg Q6H PRN IVP 09/18/17 12:00 (Colace) 100 mg BID PO 09/19/17 21:00 (Mag-Al Plus Susp Liq) 30 ml Q6H PRN PO 09/18/17 12:00 09/18/17 23:21 (Ambien) 5 mg HS PRN PO 09/18/17 21:00 (Dulcolax Supp) 10 mg DAILY PRN RECTAL 09/18/17 12:00 (Milk Of Magnesia Liq) 30 ml DAILY PRN PO 09/18/17 12:00 (Narcan Inj) 0.4 mg UNSCH PRN IV PUSH 09/18/17 12:00 (Benadryl Inj) 25 mg Q6H PRN IV PUSH 09/18/17 12:00 (Morphine Inj) 2 mg Q3H PRN IV PUSH 09/18/17 12:00 09/18/17 15:13 (Coumadin) 6 mg DAILY@1600 PO 09/18/17 17:00 09/18/17 17:31 (Prinivil) 30 mg DAILY PO 09/20/17 09:00 A/P Problem List: (1) Status post total knee replacement, right ICD Code: Z96.651 - Presence of right artificial knee joint Plan: Status post right total knee arthroplasty. Management as per orthopedic surgery. Pain control as per orthopedic surgery. Patient currently on [place] and morphine IV. 09/19 Ortho recommendations 1. Resume Coumadin. Continue with 3 days of Lovenox until therapeutic on Coumadin. Today's INR: 1.1 2. WBAT RLE 3. Ice to the right knee PRN 4. Stable for discharge to SNF on Saturday per ortho (2) Primary localized osteoarthrosis, lower leg ICD Code: M17.10 - Unilateral primary osteoarthritis, unspecified knee Plan: As above. (3) H/O deep venous thrombosis ICD Code: Z86.718 - Personal history of other venous thrombosis and embolism Status: Chronic Plan: OK to resume coumadin as per ortho. Continue Lovenox bridge until inr therapeutic, monitor PT/INR. (4) Glaucoma ICD Code: H40.9 - Unspecified glaucoma Plan: Continue Timolol and latanoprost ophthalmic drops. Stable. (5) HTN (hypertension) ICD Code: I10 - Essential (primary) hypertension Plan: Blood pressures are elevated into the 150s and 160 systolic. I will increase lisinopril to 30 mg p.o. daily Continue to monitor vital signs. Assessment and Plan DVT prophylaxis: SCDs. Continue Lovenox, Coumadin resumed. Discharge Planning Possible discharge in a.m. as per primary team. Problem Qualifiers (1) Primary localized osteoarthrosis, lower leg: Qualified Codes: M17.11 - Unilateral primary osteoarthritis, right knee (2) Glaucoma: Qualified Codes: H40.9 - Unspecified glaucoma (3) HTN (hypertension): Qualified Codes: I10 - Essential (primary) hypertension Tim Spears MD Sep 19, 2017 14:08
[2017-09-19] MEDS ORDERED: LISINOPRIL 10 MG TAB PO ONE (14:30)
[2017-09-19] MEDS: WARFARIN SOD 6 MG TAB PO SCH (16:35)
[2017-09-19] MEDS: ALUMINUM/MAGNESIUM/SIMETH 30 ML CUP PO PRN (16:37)
[2017-09-19] MEDS: DOCUSATE SODIUM 100 MG CAP PO SCH (21:01)
[2017-09-19] MEDS: MULTIVITAMINS/MINERALS THERAPEUTIC TAB PO SCH (21:01)
[2017-09-19] MEDS: LATANOPROST 0.005% OPHT SOLN 2.5 ML BTL EACH EYE SCH (21:02)
[2017-09-20] MEDS: ACETAMINOPHEN/HYDROcodone 325 MG/5 MG TAB PO PRN ×5 (03:56→22:03)
[2017-09-20] MEDS: SODIUM CHLOR 0.9% 1000 ML INJ 1,000 ML IV SCH ×3 (04:57→23:17)
[2017-09-20 05:27] LABS: HEMATOCRIT 41.2 % (39.0-51.0); HEMOGLOBIN 14.1 GM/DL (13.0-17.0); MEAN CELL VOLUME 91.4 FL (80.0-100.0); MEAN CORPUSCULAR HEMOGLOBIN 31.2 PG (27.0-34.0); MEAN CORPUSCULAR HGB CONC 34.2 % (32.0-36.0); MEAN PLATELET VOLUME 8.7 FL (7.0-11.0); PLATELET COUNT 171 TH/MM3 (150-450); RED BLOOD COUNT 4.51 MIL/MM3 (4.50-5.90); RED CELL DISTRIBUTION WIDTH 14.8 % (11.6-17.2); WHITE BLOOD COUNT 10.6 TH/MM3 (4.0-11.0)
[2017-09-20 05:38] LABS: INTERNATIONAL NORMALIZED RATIO 1.2 RATIO; PROTHROMBIN TIME - PATIENT 11.9 SEC (9.8-11.6)
[2017-09-20 08:00] VITALS: BP 186/87; PULSE 71; RESP 20; TEMP 96.7; O2SAT 98
[2017-09-20] MEDS: LISINOPRIL 10 MG TAB PO SCH (08:57)
[2017-09-20] MEDS: MAGNESIUM HYDROXIDE SUSP 30 ML CUP PO PRN ×2 (08:58→22:02)
[2017-09-20] MEDS: DOCUSATE SODIUM 100 MG CAP PO SCH ×2 (08:58→22:03)
[2017-09-20] MEDS: MULTIVITAMINS/MINERALS THERAPEUTIC TAB PO SCH ×2 (08:58→22:02)
[2017-09-20] MEDS: TIMOLOL MALEATE 0.25% OPHT SOLN 5 ML BTL EACH EYE SCH (09:00)
[2017-09-20] MEDS: ENOXAPARIN SODIUM 40 MG/0.4 ML SYRINGE SQ SCH (11:16)
[2017-09-20 12:00] VITALS: BP 196/83; PULSE 79; RESP 18; TEMP 97.6; O2SAT 98
--- NOTE | 2017-09-20 13:41 | PD.ORT.PN ---
Subjective Post Op Day #: 2 Subjective Remarks The patient is OOB in chair with mild to moderate pain to the right knee. Objective Vitals Vital Signs Date Time Temp Pulse Resp B/P (MAP) Pulse Ox O2 Delivery O2 Flow Rate FiO2 09/20/17 09:58 18 09/20/17 08:00 96.7 71 20 186/87 (120) 98 09/20/17 04:56 18 09/19/17 23:38 98.0 69 18 175/83 (113) 94 09/19/17 22:26 Room Air 09/19/17 21:20 95 09/19/17 19:27 96.8 72 18 163/86 (111) 94 09/19/17 16:00 97.0 69 18 159/82 (107) 95 I/O 09/19/17 09/19/17 09/19/17 09/20/17 09/20/17 09/20/17 07:00 15:00 23:00 07:00 15:00 23:00 Intake Total 1680 ml 720 ml 480 ml 480 ml Output Total 425 ml 1000 ml Balance 1255 ml 720 ml 480 ml -520 ml Intake Oral 480 ml 720 ml 480 ml 480 ml IV Total 1200 ml Output Urine Total 425 ml 1000 ml # Voids 2 3 # Bowel Movements 0 0 0 0 Result Diagram: 09/20/17 0515 09/19/17 1003 Other Results Laboratory Tests Test 09/20/17 05:15 Prothromb Time International Ratio 1.2 RATIO Prothrombin Time 11.9 SEC (9.8-11.6) Procedures Right TKA Objective Remarks Dressing is C/D/I. EHL/TA/G intact. 2+ pedal pulse. Calf is soft and nontender. + SILT. Assessment & Plan Ortho Post Op Day #: 2 Problem List: Assessment and Plan POD #2: Right TKA 1. Resume Coumadin. Continue with 3 days of Lovenox until therapeutic on Coumadin. DC Lovenox after 09/21/2017. Today's INR: 1.2 2. WBAT RLE 3. Ice to the right knee PRN 4. Stable for discharge to SNF on Saturday or Saturday per ortho 5. F/U in the office with Dr. Cabrera or NIKO Guidry as previously scheduled. Harley Castorena Sep 20, 2017 13:41
--- NOTE | 2017-09-20 15:08 | HHI.PR ---
Subjective Remarks Patient noted to be severely elevated with a systolic blood pressure in the 170s. Patient is afebrile. States he has some pain in his postsurgical knee of 6 4/10. States pain medication makes him a little dizzy. Objective Vitals Vital Signs Date Time Temp Pulse Resp B/P (MAP) Pulse Ox O2 Delivery O2 Flow Rate FiO2 09/20/17 09:58 18 09/20/17 08:00 96.7 71 20 186/87 (120) 98 09/20/17 04:56 18 09/19/17 23:38 98.0 69 18 175/83 (113) 94 09/19/17 22:26 Room Air 09/19/17 21:20 95 09/19/17 19:27 96.8 72 18 163/86 (111) 94 09/19/17 16:00 97.0 69 18 159/82 (107) 95 I/O 09/19/17 09/19/17 09/19/17 09/20/17 09/20/17 09/20/17 07:00 15:00 23:00 07:00 15:00 23:00 Intake Total 1680 ml 720 ml 480 ml 480 ml Output Total 425 ml 1000 ml Balance 1255 ml 720 ml 480 ml -520 ml Intake Oral 480 ml 720 ml 480 ml 480 ml IV Total 1200 ml Output Urine Total 425 ml 1000 ml # Voids 2 3 # Bowel Movements 0 0 0 0 Result Diagram: 09/20/17 0515 09/19/17 1003 Imaging Last Impressions Knee X-Ray 09/18/17 1146 Signed Impressions: Service Date/Time: Monday, September 18, 2017 12:58 - CONCLUSION: Status post total knee arthroplasty. Gustavo Bishop MD Objective Remarks Sitting in chair NAD Clear lungs S1S2 RRR abdomen soft, non tender, non distended no edema in lower extremities Moderate swelling in the right knee. Medications and IVs Current Medications Medications (Trade) Dose Ordered Sig/Basil Route Start Time Stop Time Status Last Admin Lactated Ringer's 1,000 ml @ 30 mls/hr Q24H PRN IV 09/18/17 07:30 09/21/17 07:29 09/18/17 07:30 Sodium Chloride 500 ml @ 30 mls/hr [id number] PRN IV 09/18/17 07:30 09/21/17 07:29 (Lopressor) 25 mg [employer] PRN PO 09/18/17 07:30 09/21/17 07:29 (Betadine 5% Antisepsis Kit) 1 applic [employer] PRN EACH NARE 09/18/17 07:30 09/21/17 07:29 09/18/17 07:30 (Chlorhexidine 2% Cloth) 3 pack [employer] PRN TOPICAL 09/18/17 07:30 09/21/17 07:29 09/18/17 06:15 (Betadine 7.5% Scrub) 1 applic ONCE TOPICAL 09/18/17 07:30 09/21/17 07:29 09/18/17 07:15 (Hibiclens 4% Top Soln) 1 applic ONCE TOPICAL 09/18/17 07:30 09/21/17 07:29 Cefazolin Sodium/ Dextrose 50 ml @ 100 mls/hr [employer] IV 09/18/17 07:30 09/21/17 07:29 09/18/17 09:44 Vancomycin HCl 1000 mg/Sodium Chloride 250 ml @ 250 mls/hr [employer] IV 09/18/17 07:30 09/21/17 07:29 09/18/17 09:33 (Decadron Inj) 10 mg [employer] IV 09/18/17 07:30 09/18/17 08:10 (Proair Hfa Inh) 1 puff Q4H PRN INH 09/18/17 11:45 (Xalatan 0.005% Opth Soln) 1 drop HS EACH EYE 09/18/17 21:00 09/19/17 21:02 (Timoptic 0.25% Opth Soln) 1 drop DAILY EACH EYE 09/19/17 09:00 Sodium Chloride 1,000 ml @ 100 mls/hr Q10H IV 09/18/17 13:00 09/19/17 04:44 (Lovenox Inj) 40 mg Q24H SQ 09/19/17 11:00 09/21/17 11:01 09/20/17 11:16 ([place] 5-325 Mg) 1 tab Q4H PRN PO 09/18/17 12:00 09/20/17 13:36 ([place] 5-325 Mg) 2 tab Q4H PRN PO 09/18/17 12:00 09/20/17 03:56 (Theragran M Tab) 1 tab BID PO 09/19/17 21:00 11/18/17 20:59 09/20/17 08:58 (Zofran Inj) 4 mg Q6H PRN IVP 09/18/17 12:00 09/20/17 14:39 (Colace) 100 mg BID PO 09/19/17 21:00 09/20/17 08:58 (Mag-Al Plus Susp Liq) 30 ml Q6H PRN PO 09/18/17 12:00 09/19/17 16:37 (Ambien) 5 mg HS PRN PO 09/18/17 21:00 (Dulcolax Supp) 10 mg DAILY PRN RECTAL 09/18/17 12:00 (Milk Of Magnesia Liq) 30 ml DAILY PRN PO 09/18/17 12:00 09/20/17 08:58 (Narcan Inj) 0.4 mg UNSCH PRN IV PUSH 09/18/17 12:00 (Benadryl Inj) 25 mg Q6H PRN IV PUSH 09/18/17 12:00 (Morphine Inj) 2 mg Q3H PRN IV PUSH 09/18/17 12:00 09/18/17 15:13 (Coumadin) 6 mg DAILY@1600 PO 09/18/17 17:00 09/19/17 16:35 (Prinivil) 30 mg DAILY PO 09/20/17 09:00 09/20/17 08:57 A/P Problem List: (1) Status post total knee replacement, right ICD Code: Z96.651 - Presence of right artificial knee joint Plan: Status post right total knee arthroplasty. Management as per orthopedic surgery. Pain control as per orthopedic surgery. Patient currently on [place] and morphine IV. 09/19 Ortho recommendations 1. Resume Coumadin. Continue with 3 days of Lovenox until therapeutic on Coumadin. Today's INR: 1.1 2. WBAT RLE 3. Ice to the right knee PRN 4. Stable for discharge to SNF on Saturday per ortho (2) Primary localized osteoarthrosis, lower leg ICD Code: M17.10 - Unilateral primary osteoarthritis, unspecified knee Plan: As above. (3) H/O deep venous thrombosis ICD Code: Z86.718 - Personal history of other venous thrombosis and embolism Status: Chronic Plan: OK to resume coumadin as per ortho. Continue Lovenox bridge until inr therapeutic, monitor PT/INR. 3/2 INR 1.2. Continue coumadin. (4) Glaucoma ICD Code: H40.9 - Unspecified glaucoma Plan: Continue Timolol and latanoprost ophthalmic drops. Stable. (5) HTN (hypertension) ICD Code: I10 - Essential (primary) hypertension Plan: Blood pressure still severely elevated with a systolic blood pressure in the 170s. I will add amlodipine 10 minutes p.o. daily. Continue lisinopril 30 minutes p.o. daily. Will add clonidine as needed. Continue to monitor vital signs. Assessment and Plan DVT prophylaxis: SCDs. Continue Lovenox, Coumadin resumed. Discharge Planning Possible discharge in a.m. as per primary team. Problem Qualifiers (1) Primary localized osteoarthrosis, lower leg: Qualified Codes: M17.11 - Unilateral primary osteoarthritis, right knee (2) Glaucoma: Qualified Codes: H40.9 - Unspecified glaucoma (3) HTN (hypertension): Qualified Codes: I10 - Essential (primary) hypertension Tim Spears MD Sep 20, 2017 15:08
[2017-09-20] MEDS ORDERED: cloNIDine HCL 0.1 MG TAB PO PRN (15:15)
[2017-09-20] MEDS: WARFARIN SOD 6 MG TAB PO SCH (16:12)
[2017-09-20 19:59] VITALS: BP 171/74; PULSE 74; RESP 19; TEMP 96.7; O2SAT 98
[2017-09-20] MEDS: LATANOPROST 0.005% OPHT SOLN 2.5 ML BTL EACH EYE SCH (22:03)
[2017-09-20 23:34] VITALS: BP 136/82; PULSE 76; RESP 19; TEMP 96.9; O2SAT 97
[2017-09-20 23:51] VITALS: O2SAT 95
[2017-09-21 04:42] LABS: HEMATOCRIT 42.6 % (39.0-51.0); HEMOGLOBIN 14.5 GM/DL (13.0-17.0); MEAN CELL VOLUME 91.6 FL (80.0-100.0); MEAN CORPUSCULAR HEMOGLOBIN 31.2 PG (27.0-34.0); MEAN CORPUSCULAR HGB CONC 34.1 % (32.0-36.0); MEAN PLATELET VOLUME 8.3 FL (7.0-11.0); PLATELET COUNT 91 TH/MM3 (150-450); RED BLOOD COUNT 4.65 MIL/MM3 (4.50-5.90); RED CELL DISTRIBUTION WIDTH 15.1 % (11.6-17.2); WHITE BLOOD COUNT 7.5 TH/MM3 (4.0-11.0)
[2017-09-21 04:49] LABS: INTERNATIONAL NORMALIZED RATIO 1.1 RATIO; PROTHROMBIN TIME - PATIENT 11.4 SEC (9.8-11.6)
[2017-09-21 08:00] VITALS: BP 135/69; PULSE 89; RESP 16; TEMP 97.8; O2SAT 96
[2017-09-21] MEDS: MULTIVITAMINS/MINERALS THERAPEUTIC TAB PO SCH (08:16)
[2017-09-21] MEDS: DOCUSATE SODIUM 100 MG CAP PO SCH (08:16)
[2017-09-21] MEDS: LISINOPRIL 10 MG TAB PO SCH (08:17)
[2017-09-21] MEDS: ACETAMINOPHEN/HYDROcodone 325 MG/5 MG TAB PO PRN ×2 (08:17→12:11)
[2017-09-21] MEDS: TIMOLOL MALEATE 0.25% OPHT SOLN 5 ML BTL EACH EYE SCH (09:00)
[2017-09-21 09:55] VITALS: O2SAT 95
[2017-09-21] MEDS: SODIUM CHLOR 0.9% 1000 ML INJ 1,000 ML IV SCH (11:00)
[2017-09-21] MEDS: ENOXAPARIN SODIUM 40 MG/0.4 ML SYRINGE SQ SCH (12:02)
--- NOTE | 2017-09-21 12:38 | HHI.PR ---
Subjective Remarks Pain controlled Patient is eating well. Afebrile stable vital signs Objective Vitals Vital Signs Date Time Temp Pulse Resp B/P (MAP) Pulse Ox O2 Delivery O2 Flow Rate FiO2 09/21/17 09:55 95 Nasal Cannula 4.00 09/21/17 08:00 97.8 89 16 135/69 (91) 96 09/20/17 23:51 95 4.00 09/20/17 23:34 96.9 76 19 136/82 (100) 97 09/20/17 22:46 18 09/20/17 22:44 Nasal Cannula 4.00 Humidified 09/20/17 22:42 Room Air 09/20/17 19:59 96.7 74 19 171/74 (106) 98 I/O 09/20/17 09/20/17 09/20/17 09/21/17 09/21/17 09/21/17 07:00 15:00 23:00 07:00 15:00 23:00 Intake Total 480 ml 1080 ml 480 ml Output Total 1000 ml 950 ml 500 ml Balance -520 ml 130 ml -20 ml Intake Oral 480 ml 1080 ml 480 ml Output Urine Total 1000 ml 950 ml 500 ml # Voids 4 # Bowel Movements 0 1 0 Result Diagram: 09/21/17 0422 09/19/17 1003 Imaging Last Impressions Knee X-Ray 09/18/17 1146 Signed Impressions: Service Date/Time: Monday, September 18, 2017 12:58 - CONCLUSION: Status post total knee arthroplasty. Gustavo Bishop MD Objective Remarks Sitting in chair NAD Clear lungs S1S2 RRR abdomen soft, non tender, non distended no edema in lower extremities Moderate swelling in the right knee. Medications and IVs Current Medications Medications (Trade) Dose Ordered Sig/Basil Route Start Time Stop Time Status Last Admin (Decadron Inj) 10 mg [employer] IV 09/18/17 07:30 09/18/17 08:10 (Proair Hfa Inh) 1 puff Q4H PRN INH 09/18/17 11:45 (Xalatan 0.005% Opth Soln) 1 drop HS EACH EYE 09/18/17 21:00 09/20/17 22:03 (Timoptic 0.25% Opth Soln) 1 drop DAILY EACH EYE 09/19/17 09:00 Sodium Chloride 1,000 ml @ 100 mls/hr Q10H IV 09/18/17 13:00 09/19/17 04:44 ([place] 5-325 Mg) 1 tab Q4H PRN PO 09/18/17 12:00 09/21/17 12:11 ([place] 5-325 Mg) 2 tab Q4H PRN PO 09/18/17 12:00 09/20/17 03:56 (Theragran M Tab) 1 tab BID PO 09/19/17 21:00 11/18/17 20:59 09/21/17 08:16 (Zofran Inj) 4 mg Q6H PRN IVP 09/18/17 12:00 09/20/17 14:39 (Colace) 100 mg BID PO 09/19/17 21:00 09/21/17 08:16 (Mag-Al Plus Susp Liq) 30 ml Q6H PRN PO 09/18/17 12:00 09/19/17 16:37 (Ambien) 5 mg HS PRN PO 09/18/17 21:00 (Dulcolax Supp) 10 mg DAILY PRN RECTAL 09/18/17 12:00 09/20/17 16:12 (Milk Of Magnesia Liq) 30 ml DAILY PRN PO 09/18/17 12:00 09/20/17 22:02 (Narcan Inj) 0.4 mg UNSCH PRN IV PUSH 09/18/17 12:00 (Benadryl Inj) 25 mg Q6H PRN IV PUSH 09/18/17 12:00 (Morphine Inj) 2 mg Q3H PRN IV PUSH 09/18/17 12:00 09/18/17 15:13 (Coumadin) 6 mg DAILY@1600 PO 09/18/17 17:00 09/20/17 16:12 (Prinivil) 30 mg DAILY PO 09/20/17 09:00 09/21/17 08:17 (Norvasc) 10 mg DAILY PO 09/21/17 09:00 09/21/17 08:16 (Catapres) 0.1 mg Q6H PRN PO 09/20/17 15:15 Urinary Catheter: No Vascular Central Line Catheter: No A/P Problem List: (1) Status post total knee replacement, right ICD Code: Z96.651 - Presence of right artificial knee joint Plan: Status post right total knee arthroplasty. Management as per orthopedic surgery. Pain control as per orthopedic surgery. Patient currently on [place] and morphine IV. 09/19 Ortho recommendations 1. Resume Coumadin. Continue with 3 days of Lovenox until therapeutic on Coumadin. Today's INR: 1.1 2. WBAT RLE 3. Ice to the right knee PRN 4. Stable for discharge to SNF on Saturday per ortho (2) Primary localized osteoarthrosis, lower leg ICD Code: M17.10 - Unilateral primary osteoarthritis, unspecified knee Plan: As above. (3) H/O deep venous thrombosis ICD Code: Z86.718 - Personal history of other venous thrombosis and embolism Status: Chronic Plan: OK to resume coumadin as per ortho. Continue Lovenox bridge until inr therapeutic, monitor PT/INR. 3/2 INR 1.2. Continue coumadin. (4) Glaucoma ICD Code: H40.9 - Unspecified glaucoma Plan: Continue Timolol and latanoprost ophthalmic drops. Stable. (5) HTN (hypertension) ICD Code: I10 - Essential (primary) hypertension Plan: Blood pressure still severely elevated with a systolic blood pressure in the 170s. I will add amlodipine 10 minutes p.o. daily. Continue lisinopril 30 minutes p.o. daily. Will add clonidine as needed. Continue to monitor vital signs. Assessment and Plan DVT prophylaxis: SCDs. Continue Lovenox, Coumadin resumed. Discharge Planning Possible discharge in a.m. as per primary team. Problem Qualifiers (1) Primary localized osteoarthrosis, lower leg: Qualified Codes: M17.11 - Unilateral primary osteoarthritis, right knee (2) Glaucoma: Qualified Codes: H40.9 - Unspecified glaucoma (3) HTN (hypertension): Qualified Codes: I10 - Essential (primary) hypertension Tim Spears MD Sep 21, 2017 12:38
--- NOTE | 2017-09-23 19:18 | HHI.DS ---
Discharge Summary Admission Date Sep 18, 2017 at 11:49 Discharge Date: Sep 21, 2017 Admitting Diagnosis Primary localized OA, lower leg Status post total knee replacement, right Diagnosis: (1) Primary localized osteoarthrosis, lower leg Diagnosis: Principal ICD Codes: M17.10 - Unilateral primary osteoarthritis, unspecified knee (2) Status post total knee replacement, right Diagnosis: Principal ICD Codes: Z96.651 - Presence of right artificial knee joint Procedures Right TKA Brief History This is a 77 year old male patient with severe OA of the right knee CBC/BMP: 09/21/17 0422 09/19/17 1003 Significant Findings Laboratory Tests Test 09/21/17 04:22 Platelet Count 91 TH/MM3 (150-450) PE at Discharge Dressing is C/D/I. EHL/TA/G intact. 2+ pedal pulse. Calf is soft and nontender. + SILT. Hospital Course The patient was admitted to the hospital for severe OA of the right knee to have a right TKA. The patient's surgery went well without complication. The patient is WBAT on the RLE. The patient is on a regular diet. The patient was placed on Lovenox for 3 days while resuming Coumadin until therapeutic for DVT prophylaxis. The patient was discharged to SNF and will f/u in the office with Dr. Cabrera or NIKO Guidry as previously scheduled. Pt Condition on Discharge: Stable Discharge Disposition: Discharge to SNF Discharge Instructions Diet Instructions: As Tolerated, No Restrictions Activities You Can Perform: Weight Bearing as Cheryl Activities to Avoid: Strenuous Activity Follow up Referrals: Orthopedics with Heri Cabrera MD SNF[facility]/ with [facility] New Medications: Commode 3-in-1 (Commode 3-in-1) 1 Mis Mis EA .XX DIRECTED, #1 0 Refills CPM-Continuous Passive Motion Machine (CPM-Continuous Passive Motion Machine) 1 Ea Device EA .XX DIRECTED, #1 0 Refills Walker with Front Wheels (Walker with Front Wheels) 1 Mis Mis EA .XX DIRECTED, #1 0 Refills Continued Medications: Albuterol 18 GM Inh (Ventolin Hfa 18 GM Inh) 90 Mcg/Act Aer 1 PUFF INH Q4H PRN for SHORTNESS OF BREATH, #1 INHALER 0 Refills Cyanocobalamin (Vitamin B-12) 1,000 Mcg Subl 1000 MCG SL DAILY for Nutritional Supplement, TAB.SL 0 Refills Latanoprost Opth Drops (Latanoprost Opth Drops) 0.005% Drops 1 DROP EACH EYE HS for Glaucoma, #2.5 ML 0 Refills Refrigerate until opened. Lisinopril (Lisinopril) 20 Mg Tab 20 MG PO DAILY, #30 TAB 0 Refills Timolol Opth Drops (Timolol Opth Drops) 0.25 % Soln 0.25 DROP EACH EYE DAILY Warfarin (Warfarin) 6 Mg Tab 6 MG PO DAILY for Blood Clot Prevention, #30 TAB 0 Refills Harley Castorena Sep 23, 2017 19:18
== END 2017-09-21 15:34 | DRG 470 ==
LOC: HSDC 06:44 → HSDI 11:49 → N06A 16:46
PROVIDERS: ADMIT Orthopaedic Surgery; ATTEND Orthopaedic Surgery
PROC: 3E0T3BZ Introduction of Anesthetic Agent into Peripheral Nerves and Plexi, Percutaneous Approach (ICD-10-PCS; 2017-09-18)
PROC: 0SRC0J9 Replacement of Right Knee Joint with Synthetic Substitute, Cemented, Open Approach (ICD-10-PCS; principal; 2017-09-18 09:49)
DX: M17.11 Unilateral primary osteoarthritis, right knee (principal); I48.91 Unspecified atrial fibrillation; I12.9 Hypertensive chronic kidney disease with stage 1 through stage 4 chronic kidney disease, or unspecified chronic kidney disease; H40.9 Unspecified glaucoma; N18.2 Chronic kidney disease, stage 2 (mild); Z86.718 Personal history of other venous thrombosis and embolism; Z79.01 Long term (current) use of anticoagulants
CPT/HCPCS: 73560; 80053; 85027; 85610; 86850; 86900; 86901; 94150; C1776; C9290; J0360; J0690; J0735; J1100; J1580; J1650; J1885; J2175; J2250; J2270; J2405; J2795; J3010; J3370; J7030; J7050; J7120